=== PATIENT | female | born 1995 | race Caucasian/White ===

== ENCOUNTER 2017-08-09 18:37 | Emergency (ER) | END 2017-08-10 00:44 | disposition home or self-care (01) ==

== ENCOUNTER 2017-09-26 06:14 | Day surgery (SDC) | END 2017-09-26 12:12 | disposition home or self-care (01) ==

== ENCOUNTER 2018-03-21 21:49 | Emergency (ER) | END 2018-03-22 00:22 | disposition home or self-care (01) ==

== ENCOUNTER 2018-05-15 09:38 | Day surgery (SDC) | END 2018-05-15 14:30 | disposition home or self-care (01) ==